=== PATIENT | female | born 1990 | race Caucasian/White ===

== ENCOUNTER 2016-04-30 01:05 | Inpatient (IN) | payer BC ==
[2016-04-30] MEDS: Lactated Ringers 1,000 ML IV SCH ×4 (01:30→11:53)
[2016-04-30] MEDS ORDERED: Sodium Chloride 0.9% 10 ML Syringe FLUSH PRN ×2 (02:00→14:24)
[2016-04-30] MEDS ORDERED: fentaNYL 100 MCG/2 ML SDV ONE (02:34)
[2016-04-30] MEDS ORDERED: Oxytocin/Lactated Ringers 10 UNIT/1,000 ML BAG IV ONE (02:35)
[2016-04-30] MEDS ORDERED: fentaNYL 100 MCG/2 ML SDV EPIDUR PRN (02:48)
[2016-04-30] MEDS ORDERED: ePHEDrine 50 MG/ML SDV IVPUSH PRN ×2 (02:48→17:09)
[2016-04-30] MEDS ORDERED: diphenhydrAMINE 50 MG/ML SDV IVPUSH PRN ×2 (02:48→17:09)
[2016-04-30] MEDS: Bupivacaine/fentaNYL/NS 100 ML Bag EPIDUR SCH ×2 (03:14→09:51)
--- NOTE | 2016-04-30 03:25 | PCM.PREANE ---
Preanesthetic Assessment - ANESTHESIA/TRANSFUSION/FAMILY HX Anesthesia/Transfusion History: No Prior Transfusion(s), Prior Anesthesia (no problems) Family History of Anesthesia Reaction: No - REVIEW OF SYSTEMS Constitutional: Reports: no symptoms TOOL INSPECTOR: Reports: no symptoms Respiratory: Reports: no symptoms Cardiovascular: Reports: no symptoms GI: Reports: no symptoms Other: Reports: none - PHYSICAL ASSESSMENT HR: 86 O2 Sat by Pulse Oximetry: 98 RR: 22 BP: 121/65 Temp: 36.8 C Height: 1.57 m Weight: 96.071 kg ASA Class: 2 Mental Status: alert & oriented x3 Airway Class: Mallampati = 1 Dentition: Reports: normal dentition Thyro-Mental Finger Breadths: 3 Mouth Opening Finger Breadths: 3 ROM/Head Extension: full Respiratory Status: lungs clear to auscultation bilaterally Cardiovascular Status: regular rate & rhythm, normal S1, S2, no murmur, blood pressure WNL - LAB Values: Laboratory Last Values WBC 21.13 K/mm3 (3.98-10.04) H 04/30/16 02:18 RBC 4.14 M/mm3 (3.98-5.22) 04/30/16 02:18 Hgb 12.6 gm/L (11.2-15.7) 04/30/16 02:18 Hct 36.8 % (34.1-44.9) 04/30/16 02:18 MCV 88.9 fl (79.4-94.8) 04/30/16 02:18 MCH 30.4 pg (25.6-32.2) 04/30/16 02:18 MCHC 34.2 g/dl (32.2-35.5) 04/30/16 02:18 RDW Std Deviation 40.2 fL (36.4-46.3) 04/30/16 02:18 Plt Count 258 K/mm3 (182-369) 04/30/16 02:18 MPV 10.3 fl (9.4-12.3) 04/30/16 02:18 Neut % (Auto) 83.6 % (34.0-71.1) H 04/30/16 02:18 Lymph % (Auto) 9.7 % (19.3-51.7) L 04/30/16 02:18 [place] % (Auto) 6.2 % (4.7-12.5) 04/30/16 02:18 Eos % (Auto) 0.1 (0.7-5.8) L 04/30/16 02:18 Baso % (Auto) 0.1 % (0.1-1.2) 04/30/16 02:18 Neut # 17.65 K/mm3 (1.56-6.13) H 04/30/16 02:18 Lymph # 2.04 K/mm3 (1.18-3.74) 04/30/16 02:18 [place] # 1.32 K/mm3 (0.24-0.36) H 04/30/16 02:18 Eos # 0.02 K/mm3 (0.04-0.36) L 04/30/16 02:18 Baso # 0.03 K/mm3 (0.01-0.08) 04/30/16 02:18 Manual Slide Review Abnormal smear 04/30/16 02:18 Blood Type A POSITIVE 04/30/16 02:18 Gel Antibody Screen Negative 04/30/16 02:18 - ALLERGIES Allergies/Adverse Reactions: Allergies Allergy/AdvReac Type Severity Reaction Status Date / Time cefixime [From Suprax] Allergy Rash Verified 04/29/16 08:34 - ANESTHESIA PLAN Preop Beta Diego: No Anesthesia Type Planned: epidural - ACKNOWLEDGEMENTS Pt an appropriate candidate for the planned anesthesia: Yes Alternatives and risks of anesthesia discussed w pt/guardian: Yes Pt/Guardian understands and agree with anesthesia plan: Yes PreAnesthesia Questionnaire - CURRENT (IN HOUSE) MEDS Current Meds: Current Medications Diphenhydramine HCl (Benadryl) 25 mg IVPUSH Q6H PRN PRN Reason: Itching Ephedrine Sulfate (Ephedrine Sulfate) 5 mg IVPUSH ASDIRECTED PRN PRN Reason: HYPOTENTSION Fentanyl (Sublimaze) 100 mcg EPIDUR Q3H PRN PRN Reason: PAIN Last Admin: 04/30/16 03:14 Dose: 100 mcg Fentanyl/Bupivacaine HCl (Fentanyl/Bupivacaine/Ns 2 Mcg-0.125% 100 Ml) 100 ml EPIDUR ASDIRECTED [facility] Last Admin: 04/30/16 03:14 Dose: 100 ml Lactated Ringer's (Ringers, Lactated) 1,000 mls @ 100 mls/hr IV ASDIRECTED [facility] Sodium Chloride (Saline Flush) 10 ml FLUSH ASDIRECTED PRN PRN Reason: Keep Vein Open Discontinued Medications Fentanyl (Sublimaze) Confirm Administered Dose 100 mcg .ROUTE .STK-MED ONE Stop: 04/30/16 02:35 Oxytocin/Lactated Ringer's (Pitocin In Lr 10 Units/1,000 Ml) Confirm Administered Dose 10 unit in 1,000 mls @ as directed IV .STK-MED ONE Stop: 04/30/16 02:36
[2016-04-30] MEDS ORDERED: Oxytocin/Lactated Ringers 10 UNIT/1,000 ML BAG IV SCH ×2 (06:15)
--- NOTE | 2016-04-30 07:49 | PCM.LDHP ---
L&D History of Present Illness - General Date of Service: 04/30/16 Admit Problem/Dx: Patient Status Order with Admit Dx/Problem 04/30/16 01:30 Admission Status [Patient Status] [ADT] Routine Patient Status: Refer to Observation Admission Diagnosis/Problem: Normal labor Reason for Admit: active labor Nurse Unit Type: Labor and Delivery Admitting Physician: Jenna Banerjee Attending Physician: Jenna Banerjee This patient is admitted for inpatient services and is: medically appropriate and meets medical necessity for: inpatient admission. I reasonably expect the patient will: require inpatient services that span a period of time over 2: midnights. My rationale for medically necessary inpatient: care will be found in the admission history & physical: and progress notes. I reasonalby expect the patient to be: discharged or transferred within 96 hours after admission to: Admission Diagnosis/Problem Admission Diagnosis/Problem Normal labor Source of Information: Patient History Limitations: Reports: No limitations - History of Present Illness Introduction:: 26 year old at 37 3/7 here in labor. Question SROM prior to admit. Had been 1 cm for a labor check on Sunday and was 4 cm on admit. Pain Score: 10 - Related Data Allergies/Adverse Reactions: Allergies Allergy/AdvReac Type Severity Reaction Status Date / Time cefixime [From Suprax] Allergy Rash Verified 04/29/16 08:34 Past Medical History - Past Health History Medical/Surgical History: Denies Medical/Surgical History Psychiatric History: Reports: Anxiety, Depression Social & Family History - Family History Family Medical History: Unobtainable - Tobacco Use Smoking Status *Q: Never Smoker Second Hand Smoke Exposure: No - Caffeine Use Caffeine Use: Reports: None - Recreational Drug Use Recreational Drug Use: No H&P Review of Systems - Review of Systems: Review Of Systems: See Below General: Reports: no symptoms HEENT: Reports: no symptoms Pulmonary: Reports: no symptoms Cardiovascular: Reports: no symptoms Gastrointestinal: Reports: No symptoms Genitourinary: Reports: no symptoms Musculoskeletal: Reports: no symptoms Skin: Reports: no symptoms Psychiatric: Reports: no symptoms Neurological: Reports: no symptoms Hematologic/Lymphatic: Reports: no symptoms Immunologic: Reports: no symptoms L&D Exam - Exam Exam: See Below - Vital Signs Vital Signs: Last Vital Signs Temp 36.8 C 04/30/16 03:25 Pulse 86 04/30/16 03:25 Resp 22 H 04/30/16 03:25 BP 121/65 04/30/16 03:25 Pulse Ox 98 04/30/16 03:25 Weight: 96.071 kg - OB Specific Contraction Intensity: Moderate to Strong movement: active heart tones: present Heart Rate (FHR) Variability: Moderate (6-25 bmp) Presentation: Vertex - Cook Score Cook Score Cervix Position: Midposition Cook Score Consistency: Soft Cook Score Effacement: 51-70% Cook Score Dilation: 3-4 cm - Exam General: alert, oriented HEENT: Conjunctiva clear Neck: supple Cardiovascular: regular rate, regular rhythm Abdomen: normal bowel sounds, soft Extremities: normal inspection Skin: warm, dry, intact Neurological: cranial nerves intact Psychiatric: alert, normal affect, normal mood - Patient Data Lab Results last 24 hrs: Laboratory Results - last 24 hr 04/30/16 04/30/16 Range/Units 02:18 02:18 WBC 21.13 H (3.98-10.04) K/mm3 RBC 4.14 (3.98-5.22) M/mm3 Hgb 12.6 (11.2-15.7) gm/L Hct 36.8 (34.1-44.9) % MCV 88.9 (79.4-94.8) fl MCH 30.4 (25.6-32.2) pg MCHC 34.2 (32.2-35.5) g/dl RDW Std Deviation 40.2 (36.4-46.3) fL Plt Count 258 (182-369) K/mm3 MPV 10.3 (9.4-12.3) fl Neut % (Auto) 83.6 H (34.0-71.1) % Lymph % (Auto) 9.7 L (19.3-51.7) % [place] % (Auto) 6.2 (4.7-12.5) % Eos % (Auto) 0.1 L (0.7-5.8) Baso % (Auto) 0.1 (0.1-1.2) % Neut # 17.65 H (1.56-6.13) K/mm3 Lymph # 2.04 (1.18-3.74) K/mm3 [place] # 1.32 H (0.24-0.36) K/mm3 Eos # 0.02 L (0.04-0.36) K/mm3 Baso # 0.03 (0.01-0.08) K/mm3 Manual Slide Review Abnormal smear Blood Type A POSITIVE Gel Antibody Screen Negative Result Diagrams: 04/30/16 02:18 Problem List Initiated/Reviewed/Updated: Yes Orders Last 24hrs: Active Orders 24 hr Category Date Time Status Admission Status [Patient Status] [ADT] Routine ADT 04/30/16 01:30 Active Activity as Tolerated [RC] PFP Care 04/30/16 02:00 Active Communication Order [RC] ASDIRECTED Care 04/30/16 02:00 Active Communication Order [RC] ASDIRECTED Care 04/30/16 02:48 Active Cooling Warming Measures [RC] ASDIRECTED Care 04/30/16 02:47 Active Heart Tones [RC] ASDIRECTED Care 04/30/16 02:00 Active Notify Provider [RC] ASDIRECTED Care 04/30/16 02:48 Active Notify Provider [RC] PFP Care 04/30/16 02:00 Active Notify Provider [RC] PRN Care 04/30/16 02:00 Active Oxygen Therapy [RC] ASDIRECTED Care 04/30/16 02:47 Active Peripheral IV Care [RC] . DIRECTED Care 04/30/16 02:00 Active Pulse Oximetry [RC] ASDIRECTED Care 04/30/16 02:47 Active Verify Patient Consent Obtain [RC] ASDIRECTED Care 04/30/16 02:48 Active Vital Signs [RC] PER UNIT ROUTINE Care 04/30/16 02:00 Active Vital Signs [RC] Q1H Care 04/30/16 02:47 Active Bupivacaine/fentaNYL/NS [fentaNYL/Bupivacaine/NS 2 MCG- Med 04/30/16 03:00 Active 0.125% 100 ML] 100 ml EPIDUR ASDIRECTED Lactated Ringers [Ringers, Lactated] 1,000 ml Med 04/30/16 02:00 Active IV ASDIRECTED Oxytocin/Lactated Ringers [Pitocin in LR 10 Units/1,000 Med 04/30/16 06:15 Active ML] 10 unit in 1,000 ml IV TITRATE Oxytocin/Lactated Ringers [Pitocin in LR 10 Units/1,000 Med 04/30/16 06:15 Active ML] 10 unit in 1,000 ml IV TITRATE Sodium Chloride 0.9% [Saline Flush] Med 04/30/16 02:00 Active 10 ml FLUSH ASDIRECTED PRN diphenhydrAMINE [Benadryl] Med 04/30/16 02:48 Active 25 mg IVPUSH Q6H PRN ePHEDrine [ePHEDrine Sulfate] Med 04/30/16 02:48 Active 5 mg IVPUSH ASDIRECTED PRN fentaNYL [Sublimaze] Med 04/30/16 02:48 Active 100 mcg EPIDUR Q3H PRN Electronic Heart Tones Ext w TOCO [WOMSER] Oth 04/30/16 02:00 Ordered Routine Electronic Heart Tones Internal [WOMSER] Per Unit Ot 04/30/16 02:00 Ordered Routine Peripheral IV Insertion Adult [OM.PC] Routine Ot 04/30/16 02:00 Ordered Resuscitation Status Routine Resus Stat 04/30/16 02:00 Ordered Medication Orders Diphenhydramine HCl (Benadryl) 25 mg IVPUSH Q6H PRN PRN Reason: Itching Ephedrine Sulfate (Ephedrine Sulfate) 5 mg IVPUSH ASDIRECTED PRN PRN Reason: HYPOTENTSION Last Admin: 04/30/16 03:20 Dose: 5 mg Fentanyl (Sublimaze) 100 mcg EPIDUR Q3H PRN PRN Reason: PAIN Last Admin: 04/30/16 03:14 Dose: 100 mcg Fentanyl/Bupivacaine HCl (Fentanyl/Bupivacaine/Ns 2 Mcg-0.125% 100 Ml) 100 ml EPIDUR ASDIRECTED [facility] Last Admin: 04/30/16 03:14 Dose: 100 ml Lactated Ringer's (Ringers, Lactated) 1,000 mls @ 100 mls/hr IV ASDIRECTED [facility] Last Admin: 04/30/16 05:56 Dose: 125 mls/hr Infusion: 04/30/16 05:30 Dose: 500 mls/hr Admin: 04/30/16 03:30 Dose: 500 mls/hr Infusion: 04/30/16 03:30 Dose: 500 mls/hr Admin: 04/30/16 01:30 Dose: 500 mls/hr Oxytocin/Lactated Ringer's (Pitocin In Lr 10 Units/1,000 Ml) 10 unit in 1,000 mls @ 12 mls/hr IV TITRATE [facility]; 2 MUNITS/MIN PRN Reason: Protocol Oxytocin/Lactated Ringer's (Pitocin In Lr 10 Units/1,000 Ml) 10 unit in 1,000 mls @ 3,000 mls/hr IV TITRATE [facility] PRN Reason: 500 MUNITS/MIN Sodium Chloride (Saline Flush) 10 ml FLUSH ASDIRECTED PRN PRN Reason: Keep Vein Open Assessment/Plan Comment:: Term labor. Occasional periods of decreased variability. Monitor. Anticipate .
[2016-04-30] MEDS ORDERED: Lidocaine 1% 50 ML MDV ONE (13:47)
[2016-04-30] MEDS ORDERED: Metoclopramide 10 MG/2 ML SDV IVPUSH ONE (14:24)
[2016-04-30] MEDS ORDERED: Citric Acid/Sodium Citrate Solution 30 ML Cup PO ONE (14:24)
[2016-04-30] MEDS ORDERED: Lactated Ringers 1,000 ML IV SCH (14:30)
[2016-04-30] MEDS ORDERED: Bupivacaine 0.5% 30 ML SDV ONE (14:31)
--- NOTE | 2016-04-30 14:34 | PCM.SN ---
- Free Text/Narrative Note: Pushed for 2.5 hours with some descent of head to +2 station and LOT. Attempted VAVD x 4 contractions with one pop off and minimal to no progress. Pushed additional 15 minutes. Decision for primary low transverse section. RBA discussed. Voices understanding and wishes to proceed.
[2016-04-30] MEDS ORDERED: Oxytocin 10 Units/1 ML SDV ONE ×2 (14:47→15:36)
[2016-04-30] MEDS ORDERED: ceFAZolin 1 GM Vial ONE (14:47)
[2016-04-30] MEDS ORDERED: Lidocaine 2% with EPINEPHrine 1:200,000 20 ML SDV ONE (14:50)
[2016-04-30] MEDS ORDERED: Morphine PF 10 MG/10 ML SDV ONE (14:51)
[2016-04-30] MEDS ORDERED: Lactated Ringers 1,000 ML ONE (14:52)
[2016-04-30] MEDS ORDERED: Meperidine PF 50 MG/ML Syringe ONE (15:46)
[2016-04-30] MEDS: Meperidine PF 50 MG/ML Syringe IVPUSH SCH ×2 (15:51→17:13)
[2016-04-30] MEDS ORDERED: Ketorolac 30 MG/ML SDV IVPUSH PRN (15:53)
--- NOTE | 2016-04-30 15:54 | PCM.POSTAN ---
POST ANESTHESIA ASSESSMENT - MENTAL STATUS Mental Status: alert, oriented - VITAL SIGNS Pulse Rate: 94 SaO2: 100 Resp Rate: 14 Blood Pressure: 101/57 Temperature: 36.9 C - RESPIRATORY Respiratory Status: respiratory rate WNL, airway patent, O2 saturation stable - CARDIOVASCULAR CV Status: pulse rate WNL, blood pressure stable - GASTROINTESTINAL GI Status: no symptoms - PAIN Pain Score: 0 - POST OP HYDRATION Hydration Status: adequate & stable - OBSERVATIONS Free Text/Narrative:: no anesthesia complications noted
--- NOTE | 2016-04-30 16:02 | PCM.OPNOTE ---
- General Post-Op/Procedure Note Date of Surgery/Procedure: 04/30/16 Operative Procedure(s): primary low transverse Findings: Viable male, weight 6#12 oz, APGARS 6/9, acynclintic, normal uterus tubes and ovaries. Pre Op Diagnosis: failure to descend Post-Op Diagnosis: Same Anesthesia Technique: Epidural Primary Surgeon: Jenna Banerjee Anesthesia Provider: Sami Bansal Biochemistry Technician: Drew Toledo Pathology: none Fluid Replacement, Intraop: 2,000 Output, Urine Amount: 30 EBL in mLs: 650 Complications: None Condition: Good Free Text/Narrative:: Intake & Output 04/30/16 04/30/16 04/30/16 06:59 14:59 22:59 Intake Total 1999 Balance 1999 The patient was taken to the operating room where epidural anesthesia was dosed to surgical levels without difficulty. The patient was prepped and draped in the usual sterile fashion in the dorsal supine position with a leftward tilt. A Pfannenstiel skin incision was made with the scalpel and carried through to the underlying layer of fascia. The fascia was incised in the midline and extended laterally using Dykes scissors. Linda clamps were used to elevate the superior aspect of the fascial incision, which was elevated, and the underlying rectus muscles were dissected off bluntly and using Dykes scissors. Attention was then turned to the inferior aspect of the fascial incision, which in similar fashion was grasped with Linda clamps, elevated, and the underlying rectus muscles were dissected off bluntly and using the dykes. The rectus muscles were dissected in the midline. The peritoneum was identified and entered using Metzenbaum scissors; this incision was extended superiorly and inferiorly with good visualization of the bladder. The bladder blade was inserted. The vesicouterine peritoneum was identified and entered sharply using Metzenbaum scissors. This incision was extended laterally and the bladder flap was created digitally. The bladder blade was reinserted. The lower uterine segment was incised in a transverse fashion using the scalpel and extended using bandage scissors as well as manual traction. Clear fluid was noted. The was subsequently delivered by flexing the head to the incision. Body and shoulders followed without difficulty. The cord was clamped and cut. The infant was subsequently handed to the awaiting nursery nurse. The placenta was delivered spontaneously intact with a three-vessel cord noted. The uterus was exteriorized and cleared of all clots and debris. The uterine incision was repaired in 2 layers using 0 monocryl. Hemostasis was visualized. Hemostasis was visualized bilaterally. The uterus was returned to the abdomen. The uterine incision was reexamined and it was noted to be hemostatic. The pelvis was copiously irrigated. The fascia was closed with 1 PDS suture, and the skin was closed with 3-0 monocryl. Sponge, lap, and instrument counts were correct x2. The patient was stable at the completion of the procedure and was subsequently transferred to the recovery room in stable condition.
[2016-04-30] MEDS ORDERED: Aluminum Hydroxide/Magnesium Hydroxide/Simethicone Susp 30 ML Cup PO ONE (16:23)
[2016-04-30] MEDS ORDERED: Naloxone 0.4 MG/ML SDV IVPUSH PRN (17:09)
[2016-04-30] MEDS ORDERED: Lanolin 100% Cream 7 GM Tube TOP PRN (17:09)
[2016-04-30] MEDS ORDERED: Ketorolac 30 MG/ML SDV IVPUSH SCH (17:09)
[2016-04-30] MEDS ORDERED: Dextrose 5%-Lactated Ringers 1,000 ML IV SCH (17:09)
[2016-04-30] MEDS ORDERED: Witch Hazel Medicated Pads 100/Jar TOP PRN (17:09)
[2016-04-30] MEDS ORDERED: Bupivacaine 0.25% 10 ML SDV ONE (17:09)
[2016-04-30] MEDS: Simethicone 80 MG Tab.Chew PO SCH ×3 (17:38→21:38)
[2016-04-30] MEDS: Ketorolac 30 MG/ML SDV IVPUSH SCH (21:36)
[2016-04-30] MEDS: Docusate Sodium 100 MG Cap PO PRN (21:41)
[2016-05-01] MEDS ORDERED: Dextrose 5%-0.45% NaCl 1,000 ML IV SCH (01:09)
[2016-05-01] MEDS: Ketorolac 30 MG/ML SDV IVPUSH SCH ×2 (03:40→09:28)
--- NOTE | 2016-05-01 06:56 | PCM.PNPP ---
- General Info Date of Service: 05/01/16 Functional Status: Reports: pain controlled - Review of Systems General: Reports: no symptoms HEENT: Reports: no symptoms Pulmonary: Reports: no symptoms Cardiovascular: Reports: no symptoms Gastrointestinal: Reports: No symptoms Genitourinary: Reports: no symptoms Musculoskeletal: Reports: no symptoms Skin: Reports: no symptoms Neurological: Reports: no symptoms Psychiatric: Reports: no symptoms - General Info Date of Service: 05/01/16 - Patient Data Vital Signs - most recent: Last Vital Signs Temp 36.9 C 05/01/16 01:00 Pulse 103 H 05/01/16 00:50 Resp 17 05/01/16 06:00 BP 104/58 L 05/01/16 00:50 Pulse Ox 98 05/01/16 06:00 Weight - most recent: 96.071 kg I&O - last 24 hours: Intake & Output 04/30/16 04/30/16 05/01/16 14:59 22:59 06:59 Intake Total 2300 Output Total 135 725 Balance 2165 -725 Lab Results - last 24 hrs: Laboratory Results - last 24 hr 04/30/16 05/01/16 Range/Units 02:18 05:05 WBC 19.29 H (3.98-10.04) K/mm3 RBC 2.87 L (3.98-5.22) M/mm3 Hgb 8.8 L (11.2-15.7) gm/L Hct 26.4 L (34.1-44.9) % MCV 92.0 (79.4-94.8) fl MCH 30.7 (25.6-32.2) pg MCHC 33.3 (32.2-35.5) g/dl RDW Std Deviation 42.5 (36.4-46.3) fL Plt Count 173 L (182-369) K/mm3 MPV 10.7 (9.4-12.3) fl Neut % (Auto) 85.0 H (34.0-71.1) % Lymph % (Auto) 8.3 L (19.3-51.7) % [place] % (Auto) 6.1 (4.7-12.5) % Eos % (Auto) 0.2 L (0.7-5.8) Baso % (Auto) 0.1 (0.1-1.2) % Neut # 16.40 H (1.56-6.13) K/mm3 Lymph # 1.60 (1.18-3.74) K/mm3 [place] # 1.18 H (0.24-0.36) K/mm3 Eos # 0.03 L (0.04-0.36) K/mm3 Baso # 0.02 (0.01-0.08) K/mm3 Manual Slide Review Abnormal smear Blood Type A POSITIVE Gel Antibody Screen Negative Med Orders - Current: Current Medications Diphenhydramine HCl (Benadryl) 25 mg IVPUSH Q6H PRN PRN Reason: Itching or Nausea Docusate Sodium (Colace) 100 mg PO Q12H PRN PRN Reason: Constipation Last Admin: 04/30/16 21:41 Dose: 100 mg Emollient Ointment (Lansinoh Hpa) 0 gm TOP ASDIRECTED PRN PRN Reason: Sore Nipples Ephedrine Sulfate (Ephedrine Sulfate) 5 mg IVPUSH SEECOMMENT PRN PRN Reason: Other Dextrose/Sodium Chloride (Dextrose 5%-1/2 Ns) 1,000 mls @ 125 mls/hr IV ASDIRECTED [facility] Last Admin: 05/01/16 03:40 Dose: 125 mls/hr Ibuprofen (Motrin) 600 mg PO Q6H PRN PRN Reason: mild pain or fever Ketorolac Tromethamine (Toradol) 30 mg IVPUSH Q6H [facility] Stop: 05/01/16 10:01 Last Admin: 05/01/16 03:40 Dose: 30 mg Naloxone HCl (Narcan) 0.1 mg IVPUSH SEECOMMENT PRN PRN Reason: Respiratory Depression Oxycodone/Acetaminophen (Percocet 325-5 Mg) 2 tab PO Q4H PRN PRN Reason: Pain (moderate 4-6) Simethicone (Simethicone) 80 mg PO PCBED [facility] Last Admin: 04/30/16 21:38 Dose: 80 mg Witch Lovely (Tucks) 1 pad TOP ASDIRECTED PRN PRN Reason: Perineal Comfort Measure Discontinued Medications Al Hydroxide/Mg Hydroxide (Mag-Al Plus) 30 ml PO ONETIME ONE Stop: 04/30/16 16:24 Last Admin: 04/30/16 13:50 Dose: 30 ml Bupivacaine HCl (Marcaine 0.5%) Confirm Administered Dose 30 ml .ROUTE .STK-MED ONE Stop: 04/30/16 14:32 Last Admin: 04/30/16 15:07 Dose: 20 ml Cefazolin Sodium (Ancef) Confirm Administered Dose 2 gm .ROUTE .STK-MED ONE Stop: 04/30/16 14:48 Citric Acid/Sodium Citrate (Bicitra Solution) 30 ml PO ONETIME ONE Stop: 04/30/16 14:25 Last Admin: 04/30/16 14:30 Dose: 30 ml Diphenhydramine HCl (Benadryl) 25 mg IVPUSH Q6H PRN PRN Reason: Itching Ephedrine Sulfate (Ephedrine Sulfate) 5 mg IVPUSH ASDIRECTED PRN PRN Reason: HYPOTENTSION Last Admin: 04/30/16 03:20 Dose: 5 mg Fentanyl (Sublimaze) Confirm Administered Dose 100 mcg .ROUTE .STNeptune.io-MED ONE Stop: 04/30/16 02:35 Last Admin: 04/30/16 08:23 Dose: Not Given Fentanyl (Sublimaze) 100 mcg EPIDUR Q3H PRN PRN Reason: PAIN Last Admin: 04/30/16 03:14 Dose: 100 mcg Fentanyl/Bupivacaine HCl (Fentanyl/Bupivacaine/Ns 2 Mcg-0.125% 100 Ml) 100 ml EPIDUR ASDIRECTED [facility] Last Admin: 04/30/16 09:51 Dose: 100 ml Lactated Ringer's (Ringers, Lactated) 1,000 mls @ 100 mls/hr IV ASDIRECTED [facility] Last Admin: 04/30/16 11:53 Dose: 125 mls/hr Oxytocin/Lactated Ringer's (Pitocin In Lr 10 Units/1,000 Ml) Confirm Administered Dose 10 unit in 1,000 mls @ as directed IV .STK-MED ONE Stop: 04/30/16 02:36 Last Admin: 04/30/16 08:23 Dose: Not Given Oxytocin/Lactated Ringer's (Pitocin In Lr 10 Units/1,000 Ml) 10 unit in 1,000 mls @ 12 mls/hr IV TITRATE [facility]; 2 MUNITS/MIN PRN Reason: Protocol Last Titration: 04/30/16 14:20 Dose: 0 munits/min, 0 mls/hr Oxytocin/Lactated Ringer's (Pitocin In Lr 10 Units/1,000 Ml) 10 unit in 1,000 mls @ 3,000 mls/hr IV TITRATE [facility] PRN Reason: 500 MUNITS/MIN Lactated Ringer's (Ringers, Lactated) 1,000 mls @ 125 mls/hr IV ASDIRECTED [facility] Lactated Ringer's (Ringers, Lactated) Confirm Administered Dose 1,000 mls @ as directed .ROUTE .STK-MED ONE Stop: 04/30/16 14:53 Dextrose/Lactated Ringer's (Dextrose 5%-Lactated Ringers) 1,000 mls @ 125 mls/ hr IV ASDIRECTED [facility] Stop: 05/01/16 01:08 Last Admin: 04/30/16 21:46 Dose: 125 mls/hr Ketorolac Tromethamine (Toradol) 30 mg IVPUSH ONETIME PRN PRN Reason: Pain Last Admin: 04/30/16 16:04 Dose: 30 mg Ketorolac Tromethamine (Toradol) 30 mg IVPUSH Q6H [facility] Stop: 05/01/16 05:10 Last Admin: 04/30/16 17:39 Dose: Not Given Lidocaine HCl (Xylocaine 1%) Confirm Administered Dose 50 ml .ROUTE .STK-MED ONE Stop: 04/30/16 13:48 Last Admin: 04/30/16 14:41 Dose: Not Given Lidocaine/Epinephrine (Xylocaine-Mpf 2%-Epi 1:200,000) Confirm Administered Dose 20 ml .ROUTE .STK-MED ONE Stop: 04/30/16 14:51 Meperidine HCl (Demerol) Confirm Administered Dose 50 mg .ROUTE .STK-MED ONE Stop: 04/30/16 15:47 Last Admin: 04/30/16 16:17 Dose: Not Given Meperidine HCl (Demerol) 12.5 mg IVPUSH Q15M [facility] Stop: 04/30/16 16:16 Last Admin: 04/30/16 17:13 Dose: Not Given Metoclopramide HCl (Reglan) 10 mg IVPUSH ONETIME ONE Stop: 04/30/16 14:25 Last Admin: 04/30/16 14:35 Dose: 10 mg Morphine Sulfate (Duramorph Pf) Confirm Administered Dose 10 mg .ROUTE .STK-MED ONE Stop: 04/30/16 14:52 Oxytocin (Pitocin) Confirm Administered Dose 10 unit .ROUTE .STK-MED ONE Stop: 04/30/16 14:48 Oxytocin (Pitocin) Confirm Administered Dose 10 unit .ROUTE .STK-MED ONE Stop: 04/30/16 15:37 Sodium Chloride (Saline Flush) 10 ml FLUSH ASDIRECTED PRN PRN Reason: Keep Vein Open Sodium Chloride (Saline Flush) 10 ml FLUSH ASDIRECTED PRN PRN Reason: Keep Vein Open - Interaction Infant Disposition, : in Room with Family Infant Interaction: Holding Support Person: - Recovery Exam Lochia Amount: Small Lochia Color: Rubra/Red Perineum Description: Intact, Minimal Bruising/Swelling - Exam General: alert, oriented HEENT: Pupils equal Neck: supple Lungs: Clear to auscultation, Normal respiratory effort Cardiovascular: regular rate, regular rhythm Abdomen: bowel sounds present, soft, no tenderness, no distension Extremities: no edema Skin: warm, dry, intact Wound/Incisions: healing well, dressing dry and intact Neurological: no new focal deficit Psy/Mental Status: alert, normal affect, normal mood - Problem List Review Problem List Initiated/Reviewed/Updated: Yes - My Orders Last 24 Hours: My Active Orders 04/30/16 14:24 Vital Signs [RC] Q1HR 04/30/16 17:09 Communication Order [RC] Communication Order [RC] Notify Provider Intake and Out [RC] ASDIRECTED Vital Signs [RC] Q1H Acetaminophen/oxyCODONE [Percocet 325-5 MG] 2 tab PO Q4H PRN Docusate Sodium [Colace] 100 mg PO Q12H PRN Lanolin [Lansinoh HPA] See Dose Instructions TOP ASDIRECTED PRN Naloxone [Narcan] 0.1 mg IVPUSH SEECOMMENT PRN Simethicone 80 mg PO PCBED Witch Lovely [Tucks] 1 pad TOP ASDIRECTED PRN diphenhydrAMINE [Benadryl] 25 mg IVPUSH Q6H PRN ePHEDrine [ePHEDrine Sulfate] 5 mg IVPUSH SEECOMMENT PRN Assess Lochia [WOMSER] Per Unit Routine Assess Uterine Involution [WOMSER] Per Unit Routine Medication Administration Instruction [OM.PC] Routine 04/30/16 22:00 Ketorolac [Toradol] 30 mg IVPUSH Q6H 04/30/16 Dinner Regular Diet [DIET] 05/01/16 01:09 Dextrose 5%-0.45% NaCl [Dextrose 5%-1/2 NS] 1,000 ml IV ASDIRECTED 05/01/16 15:54 Urinary Catheter Removal [RC] Per Unit Routine 05/01/16 16:00 Ibuprofen [Motrin] 600 mg PO Q6H PRN - Assessment Assessment:: Term POD1. Doing well. NO complaints. Pain controlled. Routine care. - Plan Plan:: Routine POD1 cares.
--- NOTE | 2016-05-01 07:42 | PCM48HPAN ---
Post Anesthesia Note - EVALUATION WITHIN 48HRS OF ANESTHETIC Vital Signs in Normal Range: Yes Patient Participated in Evaluation: Yes Respiratory Function Stable: Yes Airway Patent: Yes Cardiovascular Function Stable: Yes Hydration Status Stable: Yes Pain Control Satisfactory: Yes Nausea and Vomiting Control Satisfactory: Yes Mental Status Recovered: Yes
[2016-05-01] MEDS: Simethicone 80 MG Tab.Chew PO SCH ×3 (09:29→18:14)
[2016-05-01] MEDS ORDERED: Ibuprofen 600 MG Tab PO PRN (16:00)
[2016-05-01] MEDS: Acetaminophen/oxyCODONE 325-5 MG Tab PO PRN (18:14)
--- NOTE | 2016-05-01 23:30 | PCM.PNLD ---
Labor Progress Note - VS & Meds Vital Signs: Last Vital Signs Temp 36.4 C 05/01/16 20:52 Pulse 86 05/01/16 20:52 Resp 18 05/01/16 20:52 BP 113/54 L 05/01/16 20:52 Pulse Ox 97 05/01/16 20:52 Active Medications: Current Medications Diphenhydramine HCl (Benadryl) 25 mg IVPUSH Q6H PRN PRN Reason: Itching or Nausea Docusate Sodium (Colace) 100 mg PO Q12H PRN PRN Reason: Constipation Last Admin: 04/30/16 21:41 Dose: 100 mg Emollient Ointment (Lansinoh Hpa) 0 gm TOP ASDIRECTED PRN PRN Reason: Sore Nipples Ephedrine Sulfate (Ephedrine Sulfate) 5 mg IVPUSH SEECOMMENT PRN PRN Reason: Other Dextrose/Sodium Chloride (Dextrose 5%-1/2 Ns) 1,000 mls @ 125 mls/hr IV ASDIRECTED [facility] Last Admin: 05/01/16 03:40 Dose: 125 mls/hr Ibuprofen (Motrin) 600 mg PO Q6H PRN PRN Reason: mild pain or fever Naloxone HCl (Narcan) 0.1 mg IVPUSH SEECOMMENT PRN PRN Reason: Respiratory Depression Oxycodone/Acetaminophen (Percocet 325-5 Mg) 2 tab PO Q4H PRN PRN Reason: Pain (moderate 4-6) Last Admin: 05/01/16 18:14 Dose: 2 tab [facility]) [facility] Last Admin: 05/01/16 18:14 Dose: 80 mg Witch Lovely (Tucks) 1 pad TOP ASDIRECTED PRN PRN Reason: Perineal Comfort Measure Discontinued Medications Al Hydroxide/Mg Hydroxide (Mag-Al Plus) 30 ml PO ONETIME ONE Stop: 04/30/16 16:24 Last Admin: 04/30/16 13:50 Dose: 30 ml Bupivacaine HCl (Marcaine 0.5%) Confirm Administered Dose 30 ml .ROUTE .STK-MED ONE Stop: 04/30/16 14:32 Last Admin: 04/30/16 15:07 Dose: 20 ml Cefazolin Sodium (Ancef) Confirm Administered Dose 2 gm .ROUTE .STK-MED ONE Stop: 04/30/16 14:48 Citric Acid/Sodium Citrate (Bicitra Solution) 30 ml PO ONETIME ONE Stop: 04/30/16 14:25 Last Admin: 04/30/16 14:30 Dose: 30 ml Diphenhydramine HCl (Benadryl) 25 mg IVPUSH Q6H PRN PRN Reason: Itching Ephedrine Sulfate (Ephedrine Sulfate) 5 mg IVPUSH ASDIRECTED PRN PRN Reason: HYPOTENTSION Last Admin: 04/30/16 03:20 Dose: 5 mg Fentanyl (Sublimaze) Confirm Administered Dose 100 mcg .ROUTE .[facility] ONE Stop: 04/30/16 02:35 Last Admin: 04/30/16 08:23 Dose: Not Given Fentanyl (Sublimaze) 100 mcg EPIDUR Q3H PRN PRN Reason: PAIN Last Admin: 04/30/16 03:14 Dose: 100 mcg Fentanyl/Bupivacaine HCl (Fentanyl/Bupivacaine/Ns 2 Mcg-0.125% 100 Ml) 100 ml EPIDUR ASDIRECTED [facility] Last Admin: 04/30/16 09:51 Dose: 100 ml Lactated Ringer's (Ringers, Lactated) 1,000 mls @ 100 mls/hr IV ASDIRECTED [facility] Last Admin: 04/30/16 11:53 Dose: 125 mls/hr Oxytocin/Lactated Ringer's (Pitocin In Lr 10 Units/1,000 Ml) Confirm Administered Dose 10 unit in 1,000 mls @ as directed IV .[facility] ONE Stop: 04/30/16 02:36 Last Admin: 04/30/16 08:23 Dose: Not Given Oxytocin/Lactated Ringer's (Pitocin In Lr 10 Units/1,000 Ml) 10 unit in 1,000 mls @ 12 mls/hr IV TITRATE [facility]A; 2 MUNITS/MIN PRN Reason: Protocol Last Titration: 04/30/16 14:20 Dose: 0 munits/min, 0 mls/hr Oxytocin/Lactated Ringer's (Pitocin In Lr 10 Units/1,000 Ml) 10 unit in 1,000 mls @ 3,000 mls/hr IV TITRATE [facility] PRN Reason: 500 MUNITS/MIN Lactated Ringer's (Ringers, Lactated) 1,000 mls @ 125 mls/hr IV ASDIRECTED [facility] Lactated Ringer's (Ringers, Lactated) Confirm Administered Dose 1,000 mls @ as directed .ROUTE .STK-MED ONE Stop: 04/30/16 14:53 Dextrose/Lactated Ringer's (Dextrose 5%-Lactated Ringers) 1,000 mls @ 125 mls/ hr IV ASDIRECTED [facility] Stop: 05/01/16 01:08 Last Admin: 04/30/16 21:46 Dose: 125 mls/hr Ketorolac Tromethamine (Toradol) 30 mg IVPUSH ONETIME PRN PRN Reason: Pain Last Admin: 04/30/16 16:04 Dose: 30 mg Ketorolac Tromethamine (Toradol) 30 mg IVPUSH Q6H [facility] Stop: 05/01/16 05:10 Last Admin: 04/30/16 17:39 Dose: Not Given Ketorolac Tromethamine (Toradol) 30 mg IVPUSH Q6H [facility] Stop: 05/01/16 10:01 Last Admin: 05/01/16 09:28 Dose: 30 mg Lidocaine HCl (Xylocaine 1%) Confirm Administered Dose 50 ml .ROUTE .STK-MED ONE Stop: 04/30/16 13:48 Last Admin: 04/30/16 14:41 Dose: Not Given Lidocaine/Epinephrine (Xylocaine-Mpf 2%-Epi 1:200,000) Confirm Administered Dose 20 ml .ROUTE .STK-MED ONE Stop: 04/30/16 14:51 Meperidine HCl (Demerol) Confirm Administered Dose 50 mg .ROUTE .STK-MED ONE Stop: 04/30/16 15:47 Last Admin: 04/30/16 16:17 Dose: Not Given Meperidine HCl (Demerol) 12.5 mg IVPUSH Q15M [facility] Stop: 04/30/16 16:16 Last Admin: 04/30/16 17:13 Dose: Not Given Metoclopramide HCl (Reglan) 10 mg IVPUSH ONETIME ONE Stop: 04/30/16 14:25 Last Admin: 04/30/16 14:35 Dose: 10 mg Morphine Sulfate (Duramorph Pf) Confirm Administered Dose 10 mg .ROUTE .STK-MED ONE Stop: 04/30/16 14:52 Oxytocin (Pitocin) Confirm Administered Dose 10 unit .ROUTE .STK-MED ONE Stop: 04/30/16 14:48 Oxytocin (Pitocin) Confirm Administered Dose 10 unit .ROUTE .STK-MED ONE Stop: 04/30/16 15:37 Sodium Chloride (Saline Flush) 10 ml FLUSH ASDIRECTED PRN PRN Reason: Keep Vein Open Sodium Chloride (Saline Flush) 10 ml FLUSH ASDIRECTED PRN PRN Reason: Keep Vein Open - Uterine Contractions Uterine Monitoring Mode: External [place] Contraction Intensity: Moderate to Strong - Monitoring Heart Rate (FHR) Variability: Moderate (6-25 bmp) Strip Review: Category I - Vaginal Exam Dilation (cm): 8 Effacement (Percent): 100 Station: -2 Cervical Position: Midposition - Labor Progress (Free Text) Labor Progress: Good progress. AROM forebag.
[2016-05-01] MEDS ORDERED: Sodium Chloride 0.9% 10 ML Syringe FLUSH PRN (23:31)
[2016-05-01] MEDS ORDERED: Citric Acid/Sodium Citrate Solution 30 ML Cup PO ONE (23:31)
[2016-05-01] MEDS ORDERED: Metoclopramide 10 MG/2 ML SDV IVPUSH ONE (23:31)
--- NOTE | 2016-05-01 23:31 | PCM.SN ---
- Free Text/Narrative Note: Patient has been pushing for 2 hours. More uncomfortable with contractions. Unable to push more. head at +1 station. RBA discussed. Patient willing to proceed with primary section.
[2016-05-01] MEDS ORDERED: Lactated Ringers 1,000 ML IV SCH (23:45)
[2016-05-02] MEDS: Acetaminophen/oxyCODONE 325-5 MG Tab PO PRN ×4 (00:04→22:04)
[2016-05-02] MEDS: Simethicone 80 MG Tab.Chew PO SCH ×5 (00:05→22:04)
[2016-05-02] MEDS: Docusate Sodium 100 MG Cap PO PRN ×2 (00:05→21:08)
--- NOTE | 2016-05-03 10:24 | PCM.DCSUM1 ---
Discharge Summary - Hospital Course Brief History: Admitted for labor. Failure to progress and eventual . - Discharge Data Discharge Date: 05/03/16 Discharge Disposition: Home, Self-Care 01 Condition: Good - Patient Summary/Data Operative Procedure(s) Performed: primary low transverse - Patient Instructions Diet: Usual Diet as Tolerated Activity: As Tolerated Driving: Do Not Drive Showering/Bathing: May Shower Wound/Incision Care: Keep Operative Site/Wound Site Clean and Dry, Change Dressing Daily, Do NOT Change Dressing Notify Provider of: Fever, Increased Pain, Swelling and Redness, Drainage, Nausea and/or Vomiting - Discharge Plan Referrals: Antonia Gutierrez MD [Physician] - (2-4 weeks) - Discharge Summary/Plan Comment DC Time >30 min.: No - General Info Date of Service: 05/03/16 Functional Status: Reports: pain controlled - Review of Systems General: Reports: no symptoms HEENT: Reports: no symptoms Pulmonary: Reports: no symptoms Cardiovascular: Reports: no symptoms Gastrointestinal: Reports: No symptoms Genitourinary: Reports: no symptoms Musculoskeletal: Reports: no symptoms Skin: Reports: no symptoms Neurological: Reports: no symptoms Psychiatric: Reports: no symptoms - Patient Data Vitals - Most Recent: Last Vital Signs Temp 36.9 C 05/03/16 04:48 Pulse 95 05/02/16 22:10 Resp 16 05/03/16 04:48 BP 121/75 05/03/16 04:48 Pulse Ox 100 05/03/16 04:48 Weight - Most Recent: 96.071 kg I&O - Last 24 hours: Intake & Output 05/02/16 05/03/16 05/03/16 22:59 06:59 14:59 Intake Total 240 Balance 240 Med Orders - Current: Current Medications Diphenhydramine HCl (Benadryl) 25 mg IVPUSH Q6H PRN PRN Reason: Itching or Nausea Docusate Sodium (Colace) 100 mg PO Q12H PRN PRN Reason: Constipation Last Admin: 05/02/16 21:08 Dose: 100 mg Emollient Ointment (Lansinoh Hpa) 0 gm TOP ASDIRECTED PRN PRN Reason: Sore Nipples Ephedrine Sulfate (Ephedrine Sulfate) 5 mg IVPUSH SEECOMMENT PRN PRN Reason: Other Dextrose/Sodium Chloride (Dextrose 5%-1/2 Ns) 1,000 mls @ 125 mls/hr IV ASDIRECTED [facility] Last Admin: 05/01/16 03:40 Dose: 125 mls/hr Lactated Ringer's (Ringers, Lactated) 1,000 mls @ 125 mls/hr IV ASDIRECTED [facility] Ibuprofen (Motrin) 600 mg PO Q6H PRN PRN Reason: mild pain or fever Naloxone HCl (Narcan) 0.1 mg IVPUSH SEECOMMENT PRN PRN Reason: Respiratory Depression Oxycodone/Acetaminophen (Percocet 325-5 Mg) 2 tab PO Q4H PRN PRN Reason: Pain (moderate 4-6) Last Admin: 05/02/16 22:04 Dose: 2 tab Simethicone (Simethicone) 80 mg PO PCBED [facility] Last Admin: 05/02/16 22:04 Dose: 80 mg Sodium Chloride (Saline Flush) 10 ml FLUSH ASDIRECTED PRN PRN Reason: Keep Vein Open Witlouis Murry (Tucks) 1 pad TOP ASDIRECTED PRN PRN Reason: Perineal Comfort Measure Discontinued Medications Al Hydroxide/Mg Hydroxide (Mag-Al Plus) 30 ml PO ONETIME ONE Stop: 04/30/16 16:24 Last Admin: 04/30/16 13:50 Dose: 30 ml Bupivacaine HCl (Marcaine 0.5%) Confirm Administered Dose 30 ml .ROUTE .STK-MED ONE Stop: 04/30/16 14:32 Last Admin: 04/30/16 15:07 Dose: 20 ml Bupivacaine HCl (Sensorcaine-Mpf 0.25%) 10 ml .ROUTE .STK-MED ONE Stop: 04/30/16 17:10 Cefazolin Sodium (Ancef) Confirm Administered Dose 2 gm .ROUTE .STK-MED ONE Stop: 04/30/16 14:48 Citric Acid/Sodium Citrate (Bicitra Solution) 30 ml PO ONETIME ONE Stop: 04/30/16 14:25 Last Admin: 04/30/16 14:30 Dose: 30 ml Citric Acid/Sodium Citrate (Bicitra Solution) 30 ml PO ONETIME ONE Stop: 05/01/16 23:32 Last Admin: 05/02/16 01:50 Dose: Not Given Diphenhydramine HCl (Benadryl) 25 mg IVPUSH Q6H PRN PRN Reason: Itching Ephedrine Sulfate (Ephedrine Sulfate) 5 mg IVPUSH ASDIRECTED PRN PRN Reason: HYPOTENTSION Last Admin: 04/30/16 03:20 Dose: 5 mg Fentanyl (Sublimaze) Confirm Administered Dose 100 mcg .ROUTE .[employer] ONE Stop: 04/30/16 02:35 Last Admin: 04/30/16 08:23 Dose: Not Given Fentanyl (Sublimaze) 100 mcg EPIDUR Q3H PRN PRN Reason: PAIN Last Admin: 04/30/16 03:14 Dose: 100 mcg Fentanyl/Bupivacaine HCl (Fentanyl/Bupivacaine/Ns 2 Mcg-0.125% 100 Ml) 100 ml EPIDUR ASDIRECTED [facility] Last Admin: 04/30/16 09:51 Dose: 100 ml Lactated Ringer's (Ringers, Lactated) 1,000 mls @ 100 mls/hr IV ASDIRECTED [facility] Last Admin: 04/30/16 11:53 Dose: 125 mls/hr Oxytocin/Lactated Ringer's (Pitocin In Lr 10 Units/1,000 Ml) Confirm Administered Dose 10 unit in 1,000 mls @ as directed IV .[employer] ONE Stop: 04/30/16 02:36 Last Admin: 04/30/16 08:23 Dose: Not Given Oxytocin/Lactated Ringer's (Pitocin In Lr 10 Units/1,000 Ml) 10 unit in 1,000 mls @ 12 mls/hr IV TITRATE [facility]; 2 MUNITS/MIN PRN Reason: Protocol Last Titration: 04/30/16 14:20 Dose: 0 munits/min, 0 mls/hr Oxytocin/Lactated Ringer's (Pitocin In Lr 10 Units/1,000 Ml) 10 unit in 1,000 mls @ 3,000 mls/hr IV TITRATE [facility] PRN Reason: 500 MUNITS/MIN Lactated Ringer's (Ringers, Lactated) 1,000 mls @ 125 mls/hr IV ASDIRECTED [facility] Lactated Ringer's (Ringers, Lactated) Confirm Administered Dose 1,000 mls @ as directed .ROUTE .[employer] ONE Stop: 04/30/16 14:53 Dextrose/Lactated Ringer's (Dextrose 5%-Lactated Ringers) 1,000 mls @ 125 mls/ hr IV ASDIRECTED [facility] Stop: 05/01/16 01:08 Last Admin: 04/30/16 21:46 Dose: 125 mls/hr Ketorolac Tromethamine (Toradol) 30 mg IVPUSH ONETIME PRN PRN Reason: Pain Last Admin: 04/30/16 16:04 Dose: 30 mg Ketorolac Tromethamine (Toradol) 30 mg IVPUSH Q6H [facility] Stop: 05/01/16 05:10 Last Admin: 04/30/16 17:39 Dose: Not Given Ketorolac Tromethamine (Toradol) 30 mg IVPUSH Q6H [facility] Stop: 05/01/16 10:01 Last Admin: 05/01/16 09:28 Dose: 30 mg Lidocaine HCl (Xylocaine 1%) Confirm Administered Dose 50 ml .ROUTE .STK-MED ONE Stop: 04/30/16 13:48 Last Admin: 04/30/16 14:41 Dose: Not Given Lidocaine/Epinephrine (Xylocaine-Mpf 2%-Epi 1:200,000) Confirm Administered Dose 20 ml .ROUTE .STK-MED ONE Stop: 04/30/16 14:51 Meperidine HCl (Demerol) Confirm Administered Dose 50 mg .ROUTE .STK-MED ONE Stop: 04/30/16 15:47 Last Admin: 04/30/16 16:17 Dose: Not Given Meperidine HCl (Demerol) 12.5 mg IVPUSH Q15M [facility] Stop: 04/30/16 16:16 Last Admin: 04/30/16 17:13 Dose: Not Given Metoclopramide HCl (Reglan) 10 mg IVPUSH ONETIME ONE Stop: 04/30/16 14:25 Last Admin: 04/30/16 14:35 Dose: 10 mg Metoclopramide HCl (Reglan) 10 mg IVPUSH ONETIME ONE Stop: 05/01/16 23:32 Last Admin: 05/02/16 01:50 Dose: Not Given Morphine Sulfate (Duramorph Pf) Confirm Administered Dose 10 mg .ROUTE .STK-MED ONE Stop: 04/30/16 14:52 Oxytocin (Pitocin) Confirm Administered Dose 10 unit .ROUTE .STK-MED ONE Stop: 04/30/16 14:48 Oxytocin (Pitocin) Confirm Administered Dose 10 unit .ROUTE .[employer] ONE Stop: 04/30/16 15:37 Sodium Chloride (Saline Flush) 10 ml FLUSH ASDIRECTED PRN PRN Reason: Keep Vein Open Sodium Chloride (Saline Flush) 10 ml FLUSH ASDIRECTED PRN PRN Reason: Keep Vein Open - Exam General: Reports: alert, oriented HEENT: Reports: Pupils equal, Pupils reactive, EOMI, Mucous membr. moist/pink Neck: Reports: supple Lungs: Reports: Clear to auscultation, Normal respiratory effort Cardiovascular: Reports: regular rate, regular rhythm Abdomen: Reports: bowel sounds present, soft, no tenderness, no distension (Female) Exam: Normal external exam, Normal speculum exam, Normal bimanual exam Back Exam: Reports: normal inspection, full range of motion Extremities: Reports: no edema, normal pulses Skin: Reports: warm, dry, intact Wound/Incisions: Reports: healing well Neurological: Reports: no new focal deficit Psy/Mental Status: Reports: alert, normal affect, normal mood *Q Meaningful Use (DIS) - VTE *Q VTE Criteria *Q: - Stroke *Q Stroke Criteria *Q: - AMI *Q AMI Criteria *Q:
[2016-05-03] MEDS: Simethicone 80 MG Tab.Chew PO SCH ×2 (11:22→17:02)
[2016-05-03] MEDS: Acetaminophen/oxyCODONE 325-5 MG Tab PO PRN (11:23)
[2016-05-03 17:03] VITALS: BP 89/36
== END 2016-05-03 16:40 | disposition home or self-care (01) | DRG 540 ==
LOC: JD.OBCHECK 01:05 → JD.OB 01:05 → JD.OBCHECK 01:29 → JD.OB 01:30 → OBSVTOIN 15:10 → JD.OB 15:10
PROVIDERS: ADMIT Obstetrics & Gynecology; ATTEND Obstetrics & Gynecology
PROC: 10D00Z1 Extraction of Products of Conception, Low, Open Approach (ICD-10-PCS; principal; 2016-04-30)
PROC: 10907ZC Drainage of Amniotic Fluid, Therapeutic from Products of Conception, Via Natural or Artificial Opening (ICD-10-PCS; 2016-04-30)
PROC: 00HU33Z Insertion of Infusion Device into Spinal Canal, Percutaneous Approach (ICD-10-PCS; 2016-04-30)
PROC: 3E0R3CZ (ICD-10-PCS; 2016-04-30)
DX: O64.8XX0 Obstructed labor due to other malposition and malpresentation, not applicable or unspecified (principal); Z3A.38 38 weeks gestation of pregnancy; Z37.0 Single live birth
CPT/HCPCS: 01967; 01968; 36415; 85025; 86850; 86900; 86901; A9270-GY; J0690; J1885; J2175; J2270; J2590; J2765; J3010; J7042; J7120

== ENCOUNTER 2019-10-20 01:28 | Inpatient (IN) | payer BC ==
[2019-10-20] MEDS ORDERED: Lactated Ringers 1,000 ML IV ONE (02:25)
[2019-10-20] MEDS ORDERED: Sodium Chloride 0.9% 10 ML Syringe FLUSH PRN (02:25)
[2019-10-20] MEDS ORDERED: Citric Acid/Sodium Citrate Solution 30 ML Cup PO ONE (03:38)
[2019-10-20] MEDS ORDERED: Metoclopramide 10 MG/2 ML SDV IVPUSH ONE (03:38)
[2019-10-20] MEDS ORDERED: Lactated Ringers 1,000 ML IV SCH (03:45)
[2019-10-20] MEDS ORDERED: Oxytocin/Lactated Ringers 10 UNIT/1,000 ML BAG IV SCH (03:45)
[2019-10-20] MEDS ORDERED: Clindamycin Phosphate 900 MG in Sodium Chloride 0.9% 100 ML IV ONE (03:50)
[2019-10-20] MEDS ORDERED: Gentamicin 460 MG in Sodium Chloride 0.9% 100 ML IV ONE (04:02)
--- NOTE | 2019-10-20 04:03 | PCM.PREANE ---
Preanesthetic Assessment - Procedure Proposed Procedure: Repeat (stat) - Anesthesia/Transfusion/Family Hx Anesthesia History: Prior Anesthesia Without Reaction Family History of Anesthesia Reaction: No Transfusion History: No Prior Transfusion(s) Intubation History: Unknown - Review of Systems General: No Symptoms Pulmonary: No Symptoms Cardiovascular: No Symptoms Gastrointestinal: No Symptoms (GERD) Neurological: No Symptoms Other: Reports: None - Physical Assessment NPO Status Date: 10/19/19 NPO Status Time: 23:59 Vital Signs: Last Vital Signs Temp 37.2 C 10/20/19 01:33 Pulse 104 H 10/20/19 01:33 Resp 16 10/20/19 01:33 BP 126/68 10/20/19 01:33 Pulse Ox 100 10/20/19 01:33 Height: 1.57 m Weight: 92.306 kg ASA Class: 2E Mental Status: Alert & Oriented x3 Airway Class: Mallampati = 2 Dentition: Reports: Normal Dentition, Caries Thyro-Mental Finger Breadths: 3 Mouth Opening Finger Breadths: 3 ROM/Head Extension: Full Lungs: Clear to Auscultation, Normal Respiratory Effort Cardiovascular: Regular Rate, Regular Rhythm, No Murmurs - Lab Values: Laboratory Last Values WBC 12.86 K/mm3 (3.98-10.04) H 10/20/19 03:49 RBC 4.37 M/mm3 (3.98-5.22) 10/20/19 03:49 Hgb 13.3 gm/dl (11.2-15.7) D 10/20/19 03:49 Hct 39.2 % (34.1-44.9) 10/20/19 03:49 MCV 89.7 fl (79.4-94.8) 10/20/19 03:49 MCH 30.4 pg (25.6-32.2) 10/20/19 03:49 MCHC 33.9 g/dl (32.2-35.5) 10/20/19 03:49 RDW Std Deviation 42.5 fL (36.4-46.3) 10/20/19 03:49 Plt Count 242 K/mm3 (182-369) 10/20/19 03:49 MPV 10.7 fl (9.4-12.3) 10/20/19 03:49 Neut % (Auto) 74.4 % (34.0-71.1) H 10/20/19 03:49 Lymph % (Auto) 16.6 % (19.3-51.7) L 10/20/19 03:49 [place] % (Auto) 7.9 % (4.7-12.5) 10/20/19 03:49 Eos % (Auto) 0.3 (0.7-5.8) L 10/20/19 03:49 Baso % (Auto) 0.3 % (0.1-1.2) 10/20/19 03:49 Neut # (Auto) 9.58 K/mm3 (1.56-6.13) H 10/20/19 03:49 Lymph # (Auto) 2.13 K/mm3 (1.18-3.74) 10/20/19 03:49 [place] # (Auto) 1.01 K/mm3 (0.24-0.36) H 10/20/19 03:49 Eos # (Auto) 0.04 K/mm3 (0.04-0.36) 10/20/19 03:49 Baso # (Auto) 0.04 K/mm3 (0.01-0.08) 10/20/19 03:49 Membrane Rupture Negative 10/20/19 01:50 Above labs reviewed and noted and within acceptable ranges to proceed with c sec tion. - Allergies Allergies/Adverse Reactions: Allergies Allergy/AdvReac Type Severity Reaction Status Date / Time cefixime [From Suprax] Allergy Rash Verified 10/20/19 01:38 - Anesthesia Plan Pre-Op Medication Ordered: None - Acknowledgements Anesthesia Type Planned: Spinal Pt an Appropriate Candidate for the Planned Anesthesia: Yes Alternatives and Risks of Anesthesia Discussed w Pt/Guardian: Yes Pt/Guardian Understands and Agrees with Anesthesia Plan: Yes PreAnesthesia Questionnaire - Past Health History Medical/Surgical History: Denies Medical/Surgical History Psychiatric History: Reports: Anxiety, Depression - HOME MEDS Home Medications: Home Meds Omeprazole 10 mg PO 10/20/19 [History] Vits #93/Iron Fum/FA [ Formula Tablet] 1 each PO 10/20/19 [History] - CURRENT (IN HOUSE) MEDS Current Meds: Current Medications Lactated Ringer's (Ringers, Lactated) 1,000 mls @ 125 mls/hr IV ASDIRECTED [facility] Last Admin: 10/20/19 03:57 Dose: 125 mls/hr Documented by: Oxytocin/Lactated Ringer's (Pitocin In Lr 10 Units/1,000 Ml) 10 unit in 1,000 mls @ 100 mls/hr IV ASDIRECTED [facility]; Protocol Clindamycin Phosphate 900 mg/ (Sodium Chloride) 106 mls @ 200 mls/hr IV ONETIME ONE Stop: 10/20/19 04:21 Sodium Chloride (Saline Flush) 10 ml FLUSH ASDIRECTED PRN PRN Reason: Keep Vein Open Discontinued Medications Citric Acid/Sodium Citrate (Bicitra Solution) 30 ml PO ONETIME ONE Stop: 10/20/19 03:39 Last Admin: 10/20/19 03:58 Dose: 30 ml Documented by: Lactated Ringer's (Ringers, Lactated) 1,000 mls @ 999 mls/hr IV .[facility] ONE Stop: 10/20/19 03:25 Last Admin: 10/20/19 02:42 Dose: 999 mls/hr Documented by: Metoclopramide HCl (Reglan) 10 mg IVPUSH ONETIME ONE Stop: 10/20/19 03:39 Last Admin: 10/20/19 03:58 Dose: 10 mg Documented by:
[2019-10-20] MEDS ORDERED: Bupivacaine 0.5% 30 ML SDV ONE (04:08)
[2019-10-20] MEDS ORDERED: Morphine PF 1 MG/ML Amp ONE (04:10)
[2019-10-20] MEDS ORDERED: Ketorolac 30 MG/ML SDV ONE (04:10)
[2019-10-20] MEDS ORDERED: Ondansetron 4 MG/2 ML SDV ONE (04:10)
[2019-10-20] MEDS ORDERED: Oxytocin 10 Units/1 ML SDV ONE (04:10)
[2019-10-20] MEDS ORDERED: Lactated Ringers 2,000 ML ONE (04:10)
--- NOTE | 2019-10-20 04:10 | PCM.LDHP ---
L&D History of Present Illness - General Date of Service: 10/20/19 Admit Problem/Dx: Patient Status Order with Admit Dx/Problem 10/20/19 01:33 Patient Status [ADT] Routine 10/20/19 03:40 Patient Status [ADT] Routine Admission Diagnosis/Problem Admission Diagnosis/Problem 10/20/19 04:01 Fabi is a 29-year-old 2 para 1-0-0-1 white female who was admitted on the fundraiser hours of 10/20/2019 in active labor, proceeded to was dilated from 2 to 4 cm, contract every 2 to 3 minutes and desire a repeat section. Previous section done for failed vacuum extraction delivery. Source of Information: Patient History Limitations: Reports: No Limitations - History of Present Illness Introduction:: Fabi is a 29-year-old 2 para 1-0-0-1 white female who was admitted on the fundraiser hours of 10/20/2019 in active labor, proceeded to was dilated from 2 to 4 cm, contract every 2 to 3 minutes and desire a repeat section. Previous section done for failed vacuum extraction delivery. The procedure, risks, benefits, alternatives of care including at tempting a vaginal after section all discussed with the patient. She appears to understand and wishes to proceed. Consent is signed. RESIDENTIAL DIRECTOR history 2 para 1-0-0-1. Last menstrual period 01/28/2019 gives an CASIE of 11/04/2019. This is supported by 3 ultrasounds done during the course of the . Presently is at 37-6/7 weeks gestational age. Previous was unremarkable. Onset of labor with resultant delivery of a 6 pound 12 ounce via emergent section done for failed vacuum extraction delivery. This patient has been seen on a regular basis starting at 7 weeks gestational age. She had a weight gain of approximately 25 pounds, normal fundal height growth. Her diabetic screening test was normal. Laboratory testing shows blood to be a positive with a negative antibody screen. First labs showed a hemoglobin of 13.7 g/dL and platelets at 317,000. She is rubella immune. Syphilis IgG and IgM are nonreact cristofer. Hepatitis B surface antigen nonreactive. HIV nonreactive. Chlamydia and gonorrhea test both negative. TSH was normal at 2.01 microunits/mL. Second trimester hemoglobin was 12.3 g/dL and platelets were 290,000. 1 hour GTT was 130 mg/dL. 3-hour was normal. Group B strep screen was negative. Allergies: Suprax (Cefixime) causes a rash. Medications: 1. Prilosec 20 mg 1 daily by mouth daily as needed for dyspepsia 2. Tylenol as needed 3. vitamins daily 4. Simethicone 80 mg every 4 hours as needed for gaseous distention Past medical history: . Anxiety Past surgical history: 1. 2. [place] teeth extraction Family history: Mother is alive in generally good health in her father is secondary to a farm accident. No family history of bleeding disorders, blood clotting disorders, problems, anesthesia concerns or asthma. Social history: Patient is , is Drew Bruno. They live in [place]. He is [employer]. Antecedent amount of alcohol drugs or tobacco. Review of systems: In general patient has the complaint of contractions which have progressed to q. 2 to 3 minutes and are moderate to severe in intensity. She is breathing through these contractions. She is desiring section. Baby has been active. Skin: Negative Lungs: No infectious symptoms or shortness of breath Cardiovascular: No chest pain or exercise intolerance Breasts: No lumps, changes in size, pain, dimpling, discharge or axillary or supraclavicular concerns. Changes associated with . GI: Negative : changes. Musculoskeletal: Negative Neurological: Negative In general the patient is well-developed, well-nourished, pleasant female of stated age in no acute distress. Skin is warm dry without lesions. HEENT, neck and back within normal limits. Lungs are clear with good breath sounds in all lung jennings. Cardiovascular exam shows regular and rhythm with a 2/6 systolic ejection murmur present. Exam deferred. Patient does plan to breast-feed and bottlefeed. Abdomen is gravid with fundal height consistent with term . Baby in vertex presentation. Genital shows cervix to be 4 cm. Apparently was 2 cm per nurse evaluation upon admission. Bag winn intact with no evidence of bleeding or spontaneous rupture membranes. Baby in vertex presentation. Extremities and neurological exam are grossly within normal limits. - Related Data Allergies/Adverse Reactions: Allergies Allergy/AdvReac Type Severity Reaction Status Date / Time cefixime [From Suprax] Allergy Rash Verified 10/20/19 01:38 Home Medications: Home Meds Omeprazole 10 mg PO 10/20/19 [History] Vits #93/Iron Fum/FA [ Formula Tablet] 1 each PO 10/20/19 [History] Past Medical History - Past Health History Medical/Surgical History: Denies Medical/Surgical History Psychiatric History: Reports: Anxiety, Depression Social & Family History - Family History Family Medical History: Unobtainable - Caffeine Use Caffeine Use: Reports: None H&P Review of Systems - Review of Systems: Review Of Systems: See Below L&D Exam - Exam Exam: See Below - Vital Signs Vital Signs: Last Vital Signs Temp 37.2 C 10/20/19 01:33 Pulse 104 H 10/20/19 01:33 Resp 16 10/20/19 01:33 BP 126/68 10/20/19 01:33 Pulse Ox 100 10/20/19 01:33 Weight: 92.306 kg - Patient Data Lab Results Last 24 hrs: Laboratory Results - last 24 hr 10/20/19 10/20/19 Range/Units 01:50 03:49 WBC 12.86 H (3.98-10.04) K/mm3 RBC 4.37 (3.98-5.22) M/mm3 Hgb 13.3 D (11.2-15.7) gm/dl Hct 39.2 (34.1-44.9) % MCV 89.7 (79.4-94.8) fl MCH 30.4 (25.6-32.2) pg MCHC 33.9 (32.2-35.5) g/dl RDW Std Deviation 42.5 (36.4-46.3) fL Plt Count 242 (182-369) K/mm3 MPV 10.7 (9.4-12.3) fl Neut % (Auto) 74.4 H (34.0-71.1) % Lymph % (Auto) 16.6 L (19.3-51.7) % [place] % (Auto) 7.9 (4.7-12.5) % Eos % (Auto) 0.3 L (0.7-5.8) Baso % (Auto) 0.3 (0.1-1.2) % Neut # (Auto) 9.58 H (1.56-6.13) K/mm3 Lymph # (Auto) 2.13 (1.18-3.74) K/mm3 [place] # (Auto) 1.01 H (0.24-0.36) K/mm3 Eos # (Auto) 0.04 (0.04-0.36) K/mm3 Baso # (Auto) 0.04 (0.01-0.08) K/mm3 Membrane Rupture Negative Result Diagrams: 10/20/19 03:49 Problem List Initiated/Reviewed/Updated: Yes Orders Last 24hrs: Active Orders 24 hr Category Date Time Status Patient Status [ADT] Routine ADT 10/20/19 03:40 Active Antiembolic Devices [RC] .Routine Care 10/20/19 03:44 Active Communication Order [RC] ROUTINE Care 10/20/19 03:40 Active Heart Tones [RC] PER UNIT ROUTINE Care 10/20/19 03:40 Active Peripheral IV Care [RC] . DIRECTED Care 10/20/19 02:26 Active Procedure Site Prep Instruct [RC] ASDIRECTED Care 10/20/19 03:40 Active VTE/DVT Education [RC] PER UNIT ROUTINE Care 10/20/19 03:44 Active Verify Patient Consent Obtain [RC] PER UNIT ROUTINE Care 10/20/19 03:40 Active Vital Signs [RC] PER UNIT ROUTINE Care 10/20/19 01:33 Active CORONAVIRUS COVID-19 ARTIS [MOLEC] Stat Lab 10/20/19 03:48 Received RAPID PLASMA REAGIN,RPR [CHEM] Routine Lab 10/20/19 03:49 Received TYPE AND SCREEN [BBK] Routine Lab 10/20/19 03:49 Received Clindamycin Phosphate [Cleocin] 900 mg Med 10/20/19 03:50 Ordered Sodium Chloride 0.9% [Normal Saline] 100 ml IV ONETIME Lactated Ringers [Ringers, Lactated] 1,000 ml Med 10/20/19 03:45 Active IV ASDIRECTED Oxytocin/Lactated Ringers [Pitocin in LR 10 Units/1,000 Med 10/20/19 03:45 Active ML] 10 unit in 1,000 ml IV ASDIRECTED Sodium Chloride 0.9% [Saline Flush] Med 10/20/19 02:25 Active 10 ml FLUSH ASDIRECTED PRN DVT/VTE Prophylaxis Reflex [OM.PC] Routine Oth 10/20/19 03:38 Ordered Peripheral IV Insertion Adult [OM.PC] Routine Oth 10/20/19 02:25 Ordered Schedule Procedure [COMM] Per Unit Routine Oth 10/20/19 03:40 Ordered Resuscitation Status Routine Resus Stat 10/20/19 01:33 Ordered Medication Orders Lactated Ringer's (Ringers, Lactated) 1,000 mls @ 125 mls/hr IV ASDIRECTED BARBARA Last Admin: 10/20/19 03:57 Dose: 125 mls/hr Documented by: TARAH Oxytocin/Lactated Ringer's (Pitocin In Lr 10 Units/1,000 Ml) 10 unit in 1,000 mls @ 100 mls/hr IV ASDIRECTED BARBARA; Protocol Clindamycin Phosphate 900 mg/ (Sodium Chloride) 106 mls @ 200 mls/hr IV ONETIME ONE Stop: 10/20/19 04:21 Sodium Chloride (Saline Flush) 10 ml FLUSH ASDIRECTED PRN PRN Reason: Keep Vein Open Assessment/Plan Comment:: 1. 37 and seventh week intrauterine , active labor, cervical change, history of previous section for failed vacuum extraction delivery with definite desire for repeat . 2. Group B strep screen negative 3. Patient reports allergy to cephalosporins which caused a rash/hives as a child 4. Plans to breast-feed 5. Rubella immune 6. Healthy individual. Heart murmur which she has had all of her life by her history. Plan: 1. Repeat low uterine segment transverse section through Pfannenstiel skin incision under spinal block. The procedure, risk, benefits, alternatives of care including allowing natural labor to occur and proceed all discussed in detail with patient. Patient definitely wishes to proceed with a repeat section right away. 2. Infection prophylaxis clindamycin 3. DVT prophylaxis with SCDs 4. Routine preoperative evaluation with COVID testing, CBC, type and screen 5. Support breast-feeding decision.
[2019-10-20] MEDS ORDERED: ePHEDrine 50 MG/ML SDV IVPUSH PRN ×2 (04:16→08:15)
[2019-10-20] MEDS ORDERED: diphenhydrAMINE 50 MG/ML SDV IVPUSH PRN ×2 (04:16→08:15)
[2019-10-20] MEDS ORDERED: Ondansetron 4 MG/2 ML SDV IVPUSH PRN (04:16)
[2019-10-20] MEDS ORDERED: fentaNYL 100 MCG/2 ML SDV IVPUSH PRN (04:16)
[2019-10-20] MEDS ORDERED: HYDROmorphone 0.5 MG/0.5 ML Syringe IVPUSH PRN (04:17)
[2019-10-20] MEDS ORDERED: Azithromycin 250 MG Tab PO SCH (04:30)
[2019-10-20] MEDS ORDERED: Phenylephrine 1 MG in Sodium Chloride 0.9% 10 ML IV SCH (04:30)
--- NOTE | 2019-10-20 05:51 | PCM.POSTAN ---
POST ANESTHESIA ASSESSMENT - MENTAL STATUS Mental Status: Alert - VITAL SIGNS Vital Signs: Last Vital Signs Temp 97.6 10/20/19537 Pulse 65 10/20/19 0538 Resp 16 10/20/19 0538 BP 106/54 10/20/19537 Pulse Ox 100 10/20/19537 - RESPIRATORY Respiratory Status: Respiratory Rate WNL, Airway Patent, O2 Saturation Stable - CARDIOVASCULAR CV Status: Pulse Rate WNL, Blood Pressure Stable - GASTROINTESTINAL GI Status: No Symptoms - POST OP HYDRATION Hydration Status: Adequate & Stable
--- NOTE | 2019-10-20 07:24 | PCM.OPNOTE ---
- General Post-Op/Procedure Note Date of Surgery/Procedure: 10/20/19 Operative Procedure(s): Repeat lower uterine segment transverse section through Pfannenstiel skin incision under spinal anesthesia. Findings: The baby was found to be in a vertex presentation. Anterior abdominal wall showed minimal adhesions but dense adhesions were noted upon entrance into the abdominal cavity. There was adhesions from the anterior uterine wall to the right side of the anterior portion of the uterus precluding externalization of the uterus after delivery of the baby for repair as is usually done. The lower uterine segment was well developed and approximately 5 mm thick. Amniotic fluid was clear. She delivered a marrero viable female infant at 0504 hrs. on 10/20/2019. The baby had Apgars of 9 and 9, a weight of 3660 g (8 pounds 1 ounces). Pre Op Diagnosis: 1. 37-6/7-week intrauterine , active labor with cervical change. 2. History of previous section with desire for repeat section Post-Op Diagnosis: 1. Same with delivery of viable, marrero, female with Apgars of 9 and 9, weight of 3660 g (8 pounds 1 ounce post) at 0504 hrs. on 10/20/2019. 2. Dense adhesions between anterior abdominal wall and anterior right side of the uterus. Other Anesthesia Type: Marcaine 0.5% - 20 cc totallocal Primary Surgeon: Andrew Nelson Secondary Surgeon: Heidi Saul Anesthesia Provider: Pamela Ramirez Sales Manager [place]: Sujey Perez Reason Sales Manager [place] Was Necessary: Retraction, assistance, patient safety, quality of care. Fluid Replacement, Intraop: 1,300 Output, Urine Amount: 300 EBL in mLs: 600 Drain/Tube Comments:: Indwelling bladder catheter Complications: None Condition: Good Free Text/Narrative:: Intake & Output 10/19/19 10/20/19 10/20/19 22:59 06:59 14:59 Intake Total 1200 Output Total 400 Balance 800 Surgery duration: 30 minutes Surgery duration: Procedure: The patient is appropriately consented. Patient was transferred to the room and placed in a sitting position. Spinal anesthesia was administered. After confirmation of adequate anesthesia patient was placed in a supine position with a wedge under her right side to facilitate left lateral positioning. The patient was prepped and draped in usual fashion after Baldwin catheter was already placed . The anesthetic was checked and found to be adequate. 20 mL of Marcaine 0.5% was injected locally in the Pfannenstiel incision site. The Pfannenstiel skin incision was then made and carried down through skin, subcutaneous and fascial layers. The fascia was then undermined superiorly and inferiorly to allow for adequate operating room. The recti muscles midline and preperitoneal fat was bluntly dissected. Peritoneal cavity was entered longitudinally. Attempt was made to incise the vesicouterine peritoneum was then incised transversely and help bladder flap. Was very difficult because of the previously mentioned adhesions from anterior right uterine surface to the anterior abdominal wall. Because of adhesions entrance was made into the peritoneal cavity on the left side of the uterus. This did not allow for later externalization of the uterus for repair. Myometrium was incised transversely to the level of the amniotic sac. This incision was extended bilaterally in a blunt fashion. The amniotic sac was then ruptured resulting in clear amniotic fluid. A hand is placed in the low uterine segment and the baby's head was brought forth through the incision. The baby was completely delivered using fundal pressure in a routine fashion. The nose and mouth were bulb suctioned. Baby's cord was clamped x2 cut and baby was handed off to attending copper plate lithographer Dr Palma. Placenta was expressed after cord blood was obtained. Uterus was then exteriorized to allow for easier closure. The cervix was assessed and found to be dilated adequately to allow egress of blood. The uterus was closed in 2 layers. The first layer a running locked suture of 0 Monocryl, the second layer a running locked vertical mattress suture of 0 Monocryl. [id number] suture was placed at mid incision to control 1 bleeder. Hemostasis confirmed at this time. Sponge instrument needle counts are correct. Is found to be hemostatically intact. 2 small bleeders were cauterized in the area of the uterine incision. Once again sponge needle counts are correct. The anterior abdominal wall was closed with a #1 PDS suture from angle to angle. The subcutaneous area was found to be free of any bleeders. interrupted sutures of 3-0 Monocryl were used to reapproximate the subcutaneous layer.Skin was closed with a running subcuticular stitch of 3-0 Monocryl in a vertical mattress suture fashion using a Ugs needle. Prineo mesh/glue was then applied to further approximate the incision. It should be noted that patient received 7 and gentamicin preoperatively for for infection prophylaxis and had Pitocin infused after delivery of the placenta to facilitate uterine contraction. She also had sequential compression stockings in place for DVT prophylaxis. Patient was discharged from the operating room in satisfactory condition.
[2019-10-20] MEDS ORDERED: Ondansetron 4 MG/2 ML SDV IV PRN (08:15)
[2019-10-20] MEDS ORDERED: Docusate Sodium 100 MG Cap PO PRN (08:15)
[2019-10-20] MEDS ORDERED: Acetaminophen/oxyCODONE 325-5 MG Tab PO PRN (08:15)
[2019-10-20] MEDS ORDERED: Dextrose 5%-Lactated Ringers 1,000 ML IV SCH (08:15)
[2019-10-20] MEDS ORDERED: Naloxone 0.4 MG/ML SDV IVPUSH PRN (08:15)
[2019-10-20] MEDS: Simethicone 80 MG Tab.Chew PO SCH ×4 (08:28→21:24)
[2019-10-20] MEDS: Prenatal Multivitamin with Calcium/Folic Acid/Iron Tab PO SCH (08:31)
[2019-10-20] MEDS: Ibuprofen 800 MG Tab PO PRN ×2 (11:47→21:24)
[2019-10-20] MEDS: Acetaminophen/oxyCODONE 325-5 MG Tab PO PRN ×2 (18:45→23:27)
[2019-10-21] MEDS: Acetaminophen/oxyCODONE 325-5 MG Tab PO PRN (03:51)
[2019-10-21] MEDS: Ibuprofen 800 MG Tab PO PRN ×3 (05:26→22:00)
--- NOTE | 2019-10-21 08:09 | PCM.SN.2 ---
- Free Text/Narrative Note: Postoperative day #1: note: Patient is doing well in the period. Minimal lochia, voiding well, ambulated without problems. Nursing without concerns. Pain is under good control. She had Duramorph through the spinal block at the time of her C- section. Is using scheduled ibuprofen therapy. Patient is afebrile, vital signs are stable Lungs are clear with good breath sounds in all lung jennings. Cardiovascular exam shows regular rate and rhythm, known heart murmur present. Abdomen is flat, soft, uterus is below the umbilicus and is firm and nontender. It appears to be dry and intact with Prineo mesh in place. Positive bowel sounds present. Legs are nontender. Assessment: Postoperative day #1/ recovery going well. Plan: Routine care. Patient be discharged home within the next 24-48 hours.
--- NOTE | 2019-10-21 08:22 | PCM48HPAN ---
Post Anesthesia Note - EVALUATION WITHIN 48HRS OF ANESTHETIC Vital Signs in Normal Range: Yes Patient Participated in Evaluation: Yes Respiratory Function Stable: Yes Airway Patent: Yes Cardiovascular Function Stable: Yes Hydration Status Stable: Yes Pain Control Satisfactory: Yes Nausea and Vomiting Control Satisfactory: Yes Mental Status Recovered: Yes Vital Signs: Last Vital Signs Temp 36.6 C 10/21/19 03:54 Pulse 69 10/21/19 03:54 Resp 14 10/21/19 04:59 BP 97/53 L 10/21/19 03:54 Pulse Ox 99 10/21/19 04:59 - COMMENTS/OBSERVATIONS Free Text/Narrative:: no anesthesia complications noted
[2019-10-21] MEDS: Simethicone 80 MG Tab.Chew PO SCH ×4 (10:08→21:59)
[2019-10-21] MEDS: Prenatal Multivitamin with Calcium/Folic Acid/Iron Tab PO SCH (10:09)
[2019-10-22] MEDS: Ibuprofen 800 MG Tab PO PRN (06:48)
--- NOTE | 2019-10-22 09:24 | PCM.DCSUM1 ---
Discharge Summary - Hospital Course Free Text/Narrative:: Rosey is a 29-year-old 2 now para 2-0-0-2 white female who was admitted on 10/20/2019 at 37-6/7 weeks gestational age in active labor with progressive cervical dilation, a history of previous section with desire for repeat section. The procedure, risk, benefits, alternatives of care including allowing natural labor to ensue were all discussed with patient. She appeared to understand, wish to proceed with a repeat section. Please see admission history and physical for details. Please see operative report for details of her procedure. She delivered a viable, marrero, . She underwent a repeat low in segment transverse section through Pfannenstiel skin incision under spinal block. The baby was found to be in a vertex presentation. Anterior abdominal wall showed minimal adhesions but dense adhesions were noted upon entrance into the abdominal cavity. There was adhesions from the anterior uterine wall to the right side of the anterior portion of the uterus precluding externalization of the uterus after delivery of the baby for repair as is usually done. The lower uterine segment was well developed and approximately 5 mm thick. Amniotic fluid was clear. She delivered a marrero viable female infant at 0504 hrs. on 10/20/2019. The baby had Apgars of 9 and 9, a weight of 3660 g (8 pounds 1 ounces). Pre Op Diagnosis: 1. 37-6/7-week intrauterine , active labor with cervical change. 2. History of previous section with desire for repeat section Post-Op Diagnosis: 1. Same with delivery of viable, marrero, female infant with Apgars of 9 and 9, weight of 3660 g (8 pounds 1 ounce post) at 0504 hrs. on 10/20/2019. 2. Dense adhesions between anterior abdominal wall and anterior right side of the uterus. Is done well. She had Duramorph placed in the spinal block for immediate postoperative pain relief. This was followed by ibuprofen and Percocet and at the time of discharge ibuprofen only. She is bottlefeeding. She is made good bowel, bladder, ambulatory activity recovery. She is desiring discharge home. Diagnosis: Stroke: No - Discharge Data Discharge Date: 10/22/19 Discharge Disposition: Home, Self-Care 01 Condition: Good - Referral to Home Health Primary Care Physician: Andrew Nelson MD - Patient Summary/Data Operative Procedure(s) Performed: Repeat lower uterine segment transverse ce sarean section through Pfannenstiel skin incision under spinal anesthesia. - Patient Instructions Diet: Regular Diet as Tolerated Activity: As Tolerated, No Lifting Over 10 Pounds, No Strenuous Activities Driving: Do Not Drive Driving, Other: Do not drive if taking Percocet Showering/Bathing: May Shower, No Tub Bathing/Swimming Wound/Incision Care: Keep Operative Site/Wound Site Clean and Dry Notify Provider of: Fever, Increased Pain, Swelling and Redness, Drainage, Nausea and/or Vomiting Other/Special Instructions: follow up with Dr Gutierrez in 2-3 weeks, call for apt. - Discharge Plan Home Medications: Home Meds Vits #93/Iron Fum/FA [ Formula Tablet] 1 each PO 10/20/19 [History] Acetaminophen/oxyCODONE [Percocet 325-5 MG] 2 tab PO Q4H PRN tablet 10/22/19 [Rx] Ibuprofen [Motrin] 800 mg PO Q8H PRN tablet 10/22/19 [Rx] Patient Handouts: Delivery, Care After Referrals: Antonia Gutierrez MD [Physician] - - Discharge Summary/Plan Comment DC Time >30 min.: No Discharge Summary/Plan Comment: Discharge instructions: 1. Discharge home 2. Diet, activity and follow-up discussed with patient. Recommend nursing diet with increased calories and calcium. 3. Precautions given concern increased pain, bleeding, temperature, signs/symptoms of DVT/PE. 4. Medications per home medication was printed, discussed with and given to the patient. 5. Return to clinic-Dr. Aaron at [facility]-is to call for an appointment. Diagnosis: 1. Term -delivered at 37-6/7 weeks gestational age by repeat section per patient desireadmitted in active labor with progressive cervical dilation Condition: Good - Patient Data Vitals - Most Recent: Last Vital Signs Temp 37.0 C 10/21/19 19:24 Pulse 70 10/22/19 02:53 Resp 12 10/22/19 02:53 BP 124/70 10/22/19 02:53 Pulse Ox 99 10/22/19 02:53 Weight - Most Recent: 92.306 kg I&O - Last 24 hours: Intake & Output 10/21/19 10/22/19 10/22/19 22:59 06:59 14:59 Intake Total 120 Balance 120 Med Orders - Current: Current Medications Diphenhydramine HCl (Benadryl) 25 mg IVPUSH Q6H PRN PRN Reason: Itching or Nausea Docusate Sodium (Colace) 100 mg PO Q12H PRN PRN Reason: Constipation Last Admin: 10/20/19 21:28 Dose: 100 mg Documented by: Ephedrine Sulfate (Ephedrine Sulfate) 5 mg IVPUSH SEECOMMENT PRN PRN Reason: Other Ibuprofen (Motrin) 800 mg PO Q8H PRN PRN Reason: mild pain or fever Last Admin: 10/22/19 06:48 Dose: 800 mg Documented by: Naloxone HCl (Narcan) 0.1 mg IVPUSH SEECOMMENT PRN PRN Reason: Respiratory Depression Ondansetron HCl (Zofran) 4 mg IV Q4H PRN PRN Reason: Nausea/Vomiting Last Admin: 10/20/19 11:48 Dose: 4 mg Documented by: Oxycodone/Acetaminophen (Percocet 325-5 Mg) 1 tab PO Q4H PRN PRN Reason: Pain (moderate 4-6) Last Admin: 10/21/19 03:51 Dose: 1 tab Documented by: Oxycodone/Acetaminophen (Percocet 325-5 Mg) 2 tab PO Q4H PRN PRN Reason: Pain (severe 7-10) Prenat Multivit/[place]/Iron/Folic Ac ( Plus Iron) 1 each PO DAILY [facility] Last Admin: 10/21/19 10:09 Dose: Not Given Documented by: Simethicone (Simethicone) 160 mg PO QID [facility] Last Admin: 10/21/19 21:59 Dose: 160 mg Documented by: Discontinued Medications Azithromycin (Zithromax) 500 mg PO DAILY [facility] Bupivacaine HCl (Marcaine 0.5%) Confirm Administered Dose 30 ml .ROUTE .STK-MED ONE Stop: 10/20/19 04:09 Last Admin: 10/20/19 04:58 Dose: 20 ml Documented by: Citric Acid/Sodium Citrate (Bicitra Solution) 30 ml PO ONETIME ONE Stop: 10/20/19 03:39 Last Admin: 10/20/19 03:58 Dose: 30 ml Documented by: Diphenhydramine HCl (Benadryl) 25 mg IVPUSH Q6H PRN PRN Reason: pruritis Ephedrine Sulfate (Ephedrine Sulfate) 5 mg IVPUSH ASDIRECTED PRN PRN Reason: Hypotension Fentanyl (Sublimaze) 50 mcg IVPUSH Q5M PRN PRN Reason: Pain Hydromorphone HCl (Dilaudid) 0.5 mg IVPUSH ONETIME PRN PRN Reason: Pain Lactated Ringer's (Ringers, Lactated) 1,000 mls @ 999 mls/hr IV .BOLUS ONE Stop: 10/20/19 03:25 Last Admin: 10/20/19 02:42 Dose: 999 mls/hr Documented by: Lactated Ringer's (Ringers, Lactated) 1,000 mls @ 125 mls/hr IV ASDIRECTED BARBARA Last Admin: 10/20/19 03:57 Dose: 125 mls/hr Documented by: Oxytocin/Lactated Ringer's (Pitocin In Lr 10 Units/1,000 Ml) 10 unit in 1,000 mls @ 100 mls/hr IV ASDIRECTED BARBARA; Protocol Clindamycin Phosphate 900 mg/ (Sodium Chloride) 106 mls @ 200 mls/hr IV ONETIME ONE Stop: 10/20/19 04:21 Last Admin: 10/20/19 04:30 Dose: 200 mls/hr Documented by: Gentamicin Sulfate 460 mg/ (Sodium Chloride) 111.5 mls @ 111.5 mls/hr IV ONETIME ONE Stop: 10/20/19 04:03 Last Admin: 10/20/19 04:30 Dose: 111.5 mls/hr Documented by: Lactated Ringer's (Ringers, Lactated) Confirm Administered Dose 2,000 mls @ as directed .ROUTE .STK-MED ONE Stop: 10/20/19 04:11 Phenylephrine HCl 1 mg/ Sodium (Chloride) 10.1 mls @ 1 mls/sec IV TITRATE BARBARA; Protocol Dextrose/Lactated Ringer's (Dextrose 5%-Lactated Ringers) 1,000 mls @ 125 mls/hr IV ASDIRECTED BARBARA Stop: 10/20/19 16:14 Last Admin: 10/20/19 08:28 Dose: 125 mls/hr Documented by: Ketorolac Tromethamine (Toradol) Confirm Administered Dose 30 mg .ROUTE .STK-MED ONE Stop: 10/20/19 04:11 Metoclopramide HCl (Reglan) 10 mg IVPUSH ONETIME ONE Stop: 10/20/19 03:39 Last Admin: 10/20/19 03:58 Dose: 10 mg Documented by: Miscellaneous Medication (Phenylephrine 1 Mg/10 Ml-Ns) Confirm Administered Dose 1 mg IV .STK-MED ONE Stop: 10/20/19 04:11 Morphine Sulfate (Duramorph Pf) Confirm Administered Dose 1 mg .ROUTE .STK-MED ONE Stop: 10/20/19 04:11 Ondansetron HCl (Zofran) Confirm Administered Dose 4 mg .ROUTE .STK-MED ONE Stop: 10/20/19 04:11 Ondansetron HCl (Zofran) 4 mg IVPUSH ONETIME PRN PRN Reason: Nausea/Vomiting Oxytocin (Pitocin) Confirm Administered Dose 20 unit .ROUTE .STK-MED ONE Stop: 10/20/19 04:11 Sodium Chloride (Saline Flush) 10 ml FLUSH ASDIRECTED PRN PRN Reason: Keep Vein Open
[2019-10-22 11:02] VITALS: BP 90/48; PULSE 82
== END 2019-10-22 11:05 | disposition home or self-care (01) | DRG 540 ==
LOC: JD.OBCHECK 01:28 → JD.OB 01:33 → JD.OBCHECK 03:40 → JD.OB 04:09
PROVIDERS: ADMIT Obstetrics & Gynecology; ATTEND Obstetrics & Gynecology
PROC: 10D00Z1 Extraction of Products of Conception, Low, Open Approach (ICD-10-PCS; principal; 2019-10-20)
DX: O34.211 Maternal care for low transverse scar from previous cesarean delivery (principal); Z3A.37 37 weeks gestation of pregnancy; Z37.0 Single live birth; Z20.828 Contact with and (suspected) exposure to other viral communicable diseases
CPT/HCPCS: 01961; 36415; 59025; 84112; 85025; 86592; 86850; 86900; 86901; 96360; A9270-GY; J1580; J1885; J2274; J2370; J2405; J2590; J2765; J3490; J7050; J7120; J7121; U0002